=== PATIENT | female | born 1975 | race Caucasian/White ===

== ENCOUNTER 2020-09-28 15:05 | Outpatient (CLI) | payer BC ==
[~2020-09-28 15:05] MED LIST: Iopamidol 370 76% 100 ML VIAL ONE; Iopamidol 370 76% 50 ML VIAL FS ONE
--- NOTE | 2020-09-28 17:42 | CT ---
CT ABDOMEN AND PELVIS PERFORMED WITH CONTRAST ENHANCEMENT: 09/28/20 HISTORY: Generalized abdominal pain. The lung bases are clear. The liver, spleen, pancreas, and gallbladder regions appear unremarkable. Surgical clips are seen in the region of the GE junction. Right and left adrenal gland and right and left kidneys are normal in size. No significant periaortic or mesenteric adenopathy. CT OF PELVIS PERFORMED WITH CONTRAST ENHANCEMENT: No adenopathy, mass or free fluid. The appendix is not definitively identified but I see no evidence for appendicitis. Review of osseous structures show some arthritic change of the spine. IMPRESSION: No acute findings of the abdomen or pelvis. POS: [place]
== END 2020-09-28 15:06 | disposition home or self-care (01) ==
LOC: CT 15:05
PROVIDERS: ATTEND Specialist
DX: R10.84 Generalized abdominal pain (principal); R13.10 Dysphagia, unspecified; Z90.3 Acquired absence of stomach [part of]
CPT/HCPCS: 74177; Q9967